=== PATIENT | female | born 1965 | race Caucasian/White ===

== ENCOUNTER 2018-03-13 14:52 | Emergency (ER) | payer MEDICAID ==
--- NOTE | 2018-03-13 15:41 | ED Physician Chart ---
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 Pain, A/N/V/D/C, fever, chills, bleeding, or uribnary s/s; pt's last tetanus shot: > 5 years Allergies:: Allergies Allergy/AdvReac Type Severity Reaction Status Date / Time No Known Allergies Allergy Verified 03/13/18 15:12 Vitals:: Vital Signs - 8 hr 03/13/18 15:12 Temp 98.3 F HR 74 RR 16 BP 134/74 O2 Sat % 97 Historian:: Patient, Family Member Review:: Nurse's Note Reviewed ED Review of Systems - Review of Systems General/Constitutional: No fever, No chills, No weight loss, No weakness, No diaphoresis, No edema, No loss of appetite Skin: No skin lesions, No rash, No bruising Head: No headache, No light-headedness Eyes: No loss of vision, No pain, No diplopia ENT: No earache, No nasal drainage, No sore throat, No tinnitus Neck: No neck pain, No swelling, No thyromegaly, No stiffness, No mass noted Cardio Vascular: No chest pain, No palpitations, No PND, No orthopnea, No edema Pulmonary: No SOB, No cough, No sputum, No wheezing GI: No nausea, No vomiting, No diarrhea, No pain, No melena, No hematochezia, No constipation, No hematemesis G/U: No dysuria, No frequency, No hematuria, No nacturia Area Supervisor: No vaginal discharge, No abnormal vaginal bleed, No contraction Musculoskeletal: Bone or joint pain, No back pain, Muscle pain Endocrine: No polyuria, No polydipsia Psychiatric: No prior psych history, No depression, No anxiety, No suicidal ideation, No homicidal ideation, No auditory hallucination, No visual hallucination Hematopoietic: No bruising, No lymphadenopathy Allergic/Immuno: No urticaria, No angioedema Neurological: No syncope, No focal symptoms, No weakness, No paresthesia, No headache, No seizure, No dizziness, No confusion, No vertigo ED Past Medical History - Past Medical History Obtainable: Yes Past Medical History: No significant medical hx Family History: Diabetes Melitus Social History: Non Smoker, No Alcohol, No Drug Use, Surgical History: None Psychiatricy History: None Medication: Reviewed Family Medical History - Family Member Mother History Unknown: Yes ED Physical Exam - Physical Examination General/Constitutional: Awake, Well-developed, well-nourished, Alert, No distress, GCS 15, Non-toxic appearing, Ambulatory Other Head comments:: + Contusions and Abrasions especially at the Nasal Region; no septal hematomas; no epistaxis; no FBs Eyes: Lids, conjuctiva normal, PERRL, EOMI Skin: Nl inspection, No rash, No skin lesions, No ecchymosis, Well hydrated, No lymphadenopathy ENMT: External ears, nose nl, TM canals nl, Nasal exam nl, Lips, teeth, gums nl , Oropharynx nl, Tonsils nl Neck: Nontender, Full ROM w/o pain, No JVD, No nuchal rigidity, No bruit, No mass, No stridor Other Neck comments:: supple; no meningeal signs; no cervical tenderness; no bruits Respiratory: Nl effort/Exclusion, Clear to Auscultation, No Wheeze/Rhonchi/Rales Cardio Vascular: RRR, No murmur, gallop, rubs, NL S1 S2, Carotid/Femoral/Distal pulses equal bilaterally GI: No tenderness/rebounding/guarding, No organomegaly, No hernia, Normal BS's, Nondistended, No mass/bruits, No McBurney tenderness : No CVA tenderness Extremities: No tenderness or effusion, Full ROM, normal strength in all extremities, No edema, Normal digits & nails Other Extremities comments:: Left Wrist: + swelling, deformity, and tenderness with no loss of ROMs; no ligament instability; good motor, tendon, and sensory functions; no FBs; no wounds; no septic joints; no cellulitis; good NV functions Neuro/Psych: Alert/oriented, DTR's symmetric, Normal sensory exam, Normal motor strength, Judgement/insight normal, Mood normal, Normal gait, No focal deficits Misc: Normal back, No paraspinal tenderness ED Labs/Radiology/EKG Results - Lab Results Comments:: reviewed - Radiology Results Comments:: Left Wrist X-Rays: + DR and DU Impacted Fractures; + Nasal Bone Fracture ED Septic Shock - . Is Septic Shock (SBP<90, OR Lactate>4 mmol\L) present?: No - <6hrs of presentation: Vital Signs: Vital Signs - 8 hr //18 15:12 Temp 98.3 F HR 74 RR 16 BP 134/74 O2 Sat % 97 ED Reassessment (Disposition) - Reassessment Reassessment:: pt tolerated po fluids well in ER; pt is asymptomatic upon discharge Reassessment Condition:: Improved - Diagnosis Diagnosis:: Left Wrist Pain; Left Wrist Fractures; Head Injury; S/P Fall; Multiple Trauma; Multiple Contusions and Abrasions; Nasal Bone Fracture - Aftercare/Follow up Instructions Aftercare/Follow-Up Instructions:: Counseled pt regarding lab results/diagnosis & need follow up, Refer to Discharge Instructions, Counseled pt & family regarding lab results/diagnosis & need follow up Medication Prescribed:: Rx: Keflex 500mg po qid x 10 days; Neosporin Ointment bid x 14 days; Wound Care/ Head/Facial Injury Instructions; Fracture Care Instructions - Patient Disposition Discharge/Transfer:: Home Condition at Disposition:: Stable, Improved (RTER prn if existing s/s reoccur and/or get worse and/or any other new s/s occur; ACIs given for all above Dx; X- Rays Instructions; Refer to Orthopedist/ENT Specialist/Facial/Plastic Surgeon/ Iron Handler/Trauma Specialist [id number]; F/U with PMD in one day or prn; X-Rays Instructions; RTER prn if concerned)
[2018-03-13] MEDS ORDERED: Triple Antibiotic 0.94 gm Pkt TP STA (17:31)
[2018-03-13] MEDS ORDERED: Triple Antibiotic 0.94 gm Pkt TP ONE (17:40)
--- NOTE | 2018-03-14 08:45 | Diagnostic Imaging Report ---
Left wrist 3 views Indication: Trauma Comparison: none Findings: There is a comminuted slightly impacted distal radial fracture with extension to the articular surface. Surrounding soft tissue swelling is noted. No dislocation. There may be osteopenia. Mild degenerative changes are noted. Impression: Comminuted slightly impacted distal radial fracture with extension to the distal articular surface.
--- NOTE | 2018-03-14 09:14 | Diagnostic Imaging Report ---
Head CT without intravenous contrast Indication: Trauma Comparison: None Technique: Axial images were obtained from the vertex to the skull base without IV contrast. Coronal reconstructions were made. Total DLP: 670, CTDI35 FINDINGS: Images of the brain obtained without contrast demonstrate no evidence of an acute hemorrhage. The terrell-white matter differentiation is preserved. The ventricles and basal cisterns are patent. No mass effect or midline shift. No evidence of a skull fracture or focal soft tissue swelling. The visualized paranasal sinuses are clear. IMPRESSION: No acute intracranial abnormality.
--- NOTE | 2018-03-14 09:17 | Diagnostic Imaging Report ---
CT cervical spine without IV contrast HISTORY: Trauma COMPARISON: None Technique: Axial images were obtained from the skull base to the upper thoracic spine without IV contrast. Multiplanar reconstructions were made. Total DLP: 480, CTDI23 FINDINGS: Images of the cervical spine obtained without contrast demonstrate no evidence of an acute fracture or subluxation. Mild to moderate degenerative changes are seen greatest at C5/C6 with asymmetric 3 mm posterior disc osteophyte complex of the right side extending to the right neural foramen at this level causing mild rightward spinal canal and mild right neural foraminal narrowing. No prevertebral soft tissue swelling. Lung apices are clear. There is a 7 mm nodule within the right lobe of the thyroid gland. IMPRESSION: No evidence of an acute fracture or subluxation Mild to moderate degenerative changes greatest at C5/C6 7 mm nodule of the right lobe of thyroid gland. Recommend short-term follow-up with ultrasound.
--- NOTE | 2018-03-14 09:20 | Diagnostic Imaging Report ---
CT facial bones without IV contrast History: Trauma Comparison: Head CT the same day Total DLP 327, CTD I 18 Axial images of the facial bones were obtained without IV contrast. Reconstructions were made. Findings: The bilateral orbital floors are intact. The globes and intraconal compartments are intact. The bilateral zygomatic arches are intact. The bilateral TMJ joints are intact. No mandibular fracture is identified. Dental disease is noted. Minimally displaced nasal bone fractures are noted. There is mild rightward deviation of nasal septum. There is mucosal thickening of the paranasal sinuses. No air-fluid levels identified. Mild soft tissue swelling of the nasal bone region is noted. IMPRESSION: Minimally displaced nasal bone fractures with mild surrounding soft tissue swelling.
== END 2018-03-13 18:00 | disposition home or self-care (01) ==
LOC: ER 14:52
DX: S52.502A Unspecified fracture of the lower end of left radius, initial encounter for closed fracture (principal); S52.602A Unspecified fracture of lower end of left ulna, initial encounter for closed fracture; S02.2XXA Fracture of nasal bones, initial encounter for closed fracture; S09.90XA Unspecified injury of head, initial encounter; W19.XXXA Unspecified fall, initial encounter; Y93.89 Activity, other specified; Y92.89 Other specified places as the place of occurrence of the external cause; Y99.8 Other external cause status
CPT/HCPCS: 70450-TC; 70486-TC; 72125-TC; 73110-TC-LT; 81025-TC

== ENCOUNTER 2018-03-24 10:30 | Emergency (ER) | payer MEDICAID ==
--- NOTE | 2018-03-24 11:08 | ED Physician Chart ---
ED Chief Complaint/HPI - Patient Information Date Seen:: 03/24/18 Time Seen:: 11:04 Chief Complaint:: needs a followup x-ray of the left wrist History of Present Illness:: this patient had a cast placed on her left wrist and now she needs a followup x- ray for a fracture diagnosed here on her first visit. Allergies:: Allergies Allergy/AdvReac Type Severity Reaction Status Date / Time No Known Allergies Allergy Verified 03/13/18 15:12 Vitals:: Vital Signs - 8 hr 03/24/18 10:47 Temp 97.7 F HR 60 RR 15 BP 115/74 O2 Sat % 97 Historian:: Patient, Family Member (son) Review:: Nurse's Note Reviewed ED Review of Systems - Review of Systems General/Constitutional: No fever, No chills, No weight loss, No weakness, No diaphoresis, No edema, No loss of appetite Skin: No skin lesions, No rash, No bruising Head: No headache, No light-headedness Eyes: No loss of vision, No pain, No diplopia ENT: No earache, No nasal drainage, No sore throat, No tinnitus Neck: No neck pain, No swelling, No thyromegaly, No stiffness, No mass noted Cardio Vascular: No chest pain, No palpitations, No PND, No orthopnea, No edema Pulmonary: No SOB, No cough, No sputum, No wheezing GI: No nausea, No vomiting, No diarrhea, No pain, No melena, No hematochezia, No constipation, No hematemesis G/U: No dysuria, No frequency, No hematuria Musculoskeletal: No bone or joint pain, No back pain, No muscle pain, Other ( left wrist with no pain but has a cast in place) Endocrine: No polyuria, No polydipsia Psychiatric: No prior psych history, No depression, No anxiety, No suicidal ideation Hematopoietic: No bruising, No lymphadenopathy Allergic/Immuno: No urticaria, No angioedema Neurological: No syncope, No focal symptoms, No weakness, No paresthesia, No headache, No seizure, No dizziness, No confusion, No vertigo ED Past Medical History - Past Medical History Obtainable: Yes Past Medical History: No significant medical hx Family History: None Social History: Non Smoker, No Alcohol, No Drug Use Surgical History: None Family Medical History - Family Member Mother History Unknown: Yes Living Status: ED Physical Exam - Physical Examination General/Constitutional: Awake, Well-developed, well-nourished, Alert, No distress, GCS 15, Non-toxic appearing, Ambulatory Head: Atraumatic Eyes: Lids, conjuctiva normal, PERRL, EOMI Skin: Nl inspection, No rash, No skin lesions, No ecchymosis, Well hydrated, No lymphadenopathy ENMT: External ears, nose nl, Nasal exam nl, Lips, teeth, gums nl Neck: Nontender, Full ROM w/o pain, No JVD, No nuchal rigidity, No bruit, No mass, No stridor Respiratory: Nl effort/Exclusion, Clear to Auscultation, No Wheeze/Rhonchi/Rales Cardio Vascular: RRR, No murmur, gallop, rubs, NL S1 S2 GI: No tenderness/rebounding/guarding, No organomegaly, No hernia, Normal BS's, Nondistended, No mass/bruits, No McBurney tenderness : No CVA tenderness Extremities: No tenderness or effusion, Full ROM, normal strength in all extremities, No edema, Normal digits & nails Other Extremities comments:: left wrist in a cast Neuro/Psych: Alert/oriented, DTR's symmetric, Normal sensory exam, Normal motor strength, Judgement/insight normal, Mood normal, Normal gait, No focal deficits Misc: Normal back, No paraspinal tenderness ED Assessment - Assessment General Assessment: resloving fracture of the left wrist ED Septic Shock - . Is Septic Shock (SBP<90, OR Lactate>4 mmol\L) present?: No - <6hrs of presentation: Vital Signs: Vital Signs - 8 hr 03/24/18 10:47 Temp 97.7 F HR 60 RR 15 BP 115/74 O2 Sat % 97 ED Reassessment (Disposition) - Reassessment Reassessment Condition:: Unchanged - Diagnosis Diagnosis:: left wrist healing fracture - Aftercare/Follow up Instructions Aftercare/Follow-Up Instructions:: Counseled pt regarding lab results/diagnosis & need follow up, Refer to Discharge Instructions, Counseled pt & family regarding lab results/diagnosis & need follow up - Patient Disposition Discharge/Transfer:: Home Condition at Disposition:: Unchanged
--- NOTE | 2018-03-25 10:31 | Diagnostic Imaging Report ---
Exam: Left wrist joint. HISTORY: Status post trauma. Findings: Multiple views of left wrist joint with a plastic cast reviewed. The study demonstrates satisfactory position of the cast. There is again noted fracture of the distal left radius extending into the radiocarpal joint space. IMPRESSION: Satisfactory position of cast left wrist joint Minimally ventral displaced fracture of the distal left radius.
== END 2018-03-24 11:10 | disposition home or self-care (01) ==
LOC: ER 10:30
DX: S62.102D Fracture of unspecified carpal bone, left wrist, subsequent encounter for fracture with routine healing (principal); X58.XXXD Exposure to other specified factors, subsequent encounter
CPT/HCPCS: 73110-TC-LT; Z7502